=== PATIENT | male | born 1960 | race Hispanic/Latino ===

== ENCOUNTER 2024-07-24 08:33 | Emergency (ER) | payer SELFPAY ==
[2024-07-24 09:03] LABS: Hematocrit 42.2 % (42.0-52.0); Hemoglobin 14.3 g/dL (14.0-18.0); Mean Corpuscular HGB CONC 33.9 g/dL (32.0-36.0); Mean Corpuscular Hemoglobin 32.8 pg (27.0-31.0); Mean Corpuscular Volume 96.8 fL (78.0-98.0); Mean Platelet Volume 10.5 fL (7.4-10.4); Platelet Count 60 10x3/uL (130-400); Red Blood Cell (RBC) Count 4.36 mill/uL (4.70-6.10)
[2024-07-24 09:16] LABS: PTT 23.5 sec (22.9-36.1); Prothrombin Time 13.4 sec (12.0-14.7)
[2024-07-24 09:16] LABS: Alcohol Less than 10.0 mg/dL (Less than 10)
[2024-07-24 09:18] LABS: ALT (SGPT) 24 U/L (8-55); AST (SGOT) 26 U/L (5-34); Albumin 3.8 g/dL (3.4-4.8); Alkaline Phosphatase 82 U/L (40-110); Anion Gap 13 mmol/L (10-20); BUN (Urea Nitrogen) 17 mg/dL (8.4-25.7); Bilirubin, Total 0.3 mg/dL (0.2-1.2); Calc. Creatinine Clearance 0 mL/min (70-130); Calcium 8.8 mg/dL (7.8-10.44); Carbon Dioxide 16 mmol/L (23-31); Chloride 109 mmol/L (98-107); Estimated GFR 96; Globulin 3.4 g/dL (2.4-3.5); Glucose 233 mg/dL (80-115); Lipase 27 U/L (8-78); Potassium 3.8 mmol/L (3.5-5.1); Protein, Total 7.2 g/dL (5.8-8.1); Sodium 134 mmol/L (136-145)
[2024-07-24 09:21] LABS: Ovalocytes SLIGHT = 2-5 cells HPF (0-1); Platelet Adequacy Comment Significant Decrease
[2024-07-24 09:24] LABS: #Basophils 0.07 10x3/uL (0.0-0.2); %Basophils 0.7 % (0.0-1.0); %Eosinophils 1.4 % (0.0-10.0); %Lymphocytes 25.2 % (21.0-51.0); %Monocytes 6.5 % (0.0-10.0); %Neutrophils 65.6 % (42.0-75.0)
[2024-07-24] MEDS ORDERED: fentaNYL 50 mcg/mL 1 mL Vial ONE (09:26)
[2024-07-24] MEDS ORDERED: Boostrix 0.5 ML (Tdap) VIAL (>/=7 yrs of age) ONE (09:27)
[2024-07-24] MEDS ORDERED: TETANUS, DIPHTHERIA TOX,ADULT (TDVAX) 0.5 ML VIAL IM ONE (09:31)
[2024-07-24] MEDS ORDERED: Iopamidol-370 76% 500 ML MDV (1 ML CHARGE) ONE (10:24)
[2024-07-24 11:39] LABS: Bilirubin Negative (Negative); Blood, Urine Negative (Negative); CAUTI Indications for Culture Dysuria,urgency,freq; Clarity Clear (Clear); Glucose, Urine (Dipstick) 200 mg/dL (Negative); Ketone, Urine Negative (Negative); Leukocyte 250 Leu/uL (Negative); Nitrite 1+ (Negative); Protein, Urine (Dipstick) Negative (Neg-Trace); Squamous Epithelial 0-3 HPF (0-3); Urobilinogen Normal mg/dL (Less than 2); pH, Urine 5.5 (5.0-9.0)
[2024-07-24 11:50] LABS: Bacteria/HPF 2+ HPF (None Seen); Specific Gravity, Urine Greater than 1.060 (1.002-1.036)
[2024-07-24 11:52] LABS: Urine Culture Reflex Yes Yes
[2024-07-24 12:02] LABS: Lactic Acid 2.55 mmol/L (0.5-2.2)
[2024-07-24] MEDS ORDERED: Bacitracin 1 PK ONE (12:50)
== END 2024-07-24 13:17 | disposition home or self-care (01) ==
LOC: ERS 08:33
DX: S12.040A Displaced lateral mass fracture of first cervical vertebra, initial encounter for closed fracture (principal); S01.119A Laceration without foreign body of unspecified eyelid and periocular area, initial encounter; S01.81XA Laceration without foreign body of other part of head, initial encounter; S01.01XA Laceration without foreign body of scalp, initial encounter; N39.0 Urinary tract infection, site not specified; V48.1XXA Car passenger injured in noncollision transport accident in nontraffic accident, initial encounter; W22.12XA Striking against or struck by front passenger side automobile airbag, initial encounter; Y92.410 Unspecified street and highway as the place of occurrence of the external cause; Z23 Encounter for immunization; Z75.8 Other problems related to medical facilities and other health care
CPT/HCPCS: 12013; 36415; 70450; 70498; 71045; 71260; 72125; 72170; 74177; 80053; 80307; 81001; 83605; 83690; 85025; 85610; 85730; 87077; 87086; 87186; 90471; 90714; 90715; 93005; 96374; G0390; J3010; Q9967